=== PATIENT | male | born 1965 | race Caucasian/White ===

== ENCOUNTER 2021-07-08 04:21 | Day surgery (SDC) | payer BC, OTHER ==
[2021-07-07 16:46] VITALS: BMI 28.0
[2021-07-08] MEDS ORDERED: ceFAZolin SODIUM 1 GM VIAL ONE (07:22)
[2021-07-08] MEDS ORDERED: DEXAMETHASONE SOD PHOSPHATE 4 MG/1 ML VIAL ONE (07:22)
[2021-07-08] MEDS ORDERED: LIDOCAINE HCL/PF 2% SDV 5ML VIAL ONE (07:22)
[2021-07-08] MEDS ORDERED: KETOROLAC TROMETHAMINE 30 MG/1 ML VIAL ONE (07:22)
[2021-07-08] MEDS ORDERED: ONDANSETRON 4 MG/2 ML VIAL ONE ×2 (07:22→07:30)
[2021-07-08] MEDS ORDERED: LIDOCAINE HCL 1%, 10 MG/ML (20ML VIAL) ONE (07:22)
[2021-07-08] MEDS ORDERED: SODIUM CHLORIDE 0.9% P/F 10 ML VIAL IJ ONE (07:22)
[2021-07-08] MEDS ORDERED: BUPIVACAINE HCL/PF 0.5% (5MG/ML) 10 ML VIAL ONE (07:23)
[2021-07-08] MEDS ORDERED: PROPOFOL 20 ML ONE ×3 (07:23)
[2021-07-08] MEDS ORDERED: SUCCINYLCHOLINE CHLORIDE 200 MG/10 ML SYRINGE ONE (07:23)
[2021-07-08] MEDS ORDERED: MIDAZOLAM HCL 2 MG/2 ML SINGLE DOSE VIAL ONE ×2 (07:23)
[2021-07-08] MEDS ORDERED: oxyCODONE HCL 5 MG TABLET PO PRN ×2 (07:44)
[2021-07-08] MEDS ORDERED: ONDANSETRON 4 MG/2 ML VIAL IVPUSH PRN (07:44)
[2021-07-08] MEDS ORDERED: LACTATED RINGERS SOLUTION 1,000 ML IV SCH (07:45)
[2021-07-08] MEDS ORDERED: BUPIVACAINE HCL/PF 0.5% (5MG/ML) 10 ML VIAL IJ ONE (08:42)
[2021-07-08] MEDS ORDERED: LIDOCAINE HCL 1%, 10 MG/ML (20ML VIAL) PNB ONE (08:58)
[2021-07-08 11:19] VITALS: BP 149/100; PULSE 69; TEMP 97.8
== END 2021-07-08 11:19 | disposition home or self-care (01) ==
LOC: JASU-SURG 04:21
PROVIDERS: ATTEND Orthopaedic Surgery
PROC: 01N50ZZ Release Median Nerve, Open Approach (ICD-10-PCS; principal; 2021-07-08 08:00)
DX: G56.01 Carpal tunnel syndrome, right upper limb (principal); M65.831 Other synovitis and tenosynovitis, right forearm